=== PATIENT | female | born 1945 | race Two or more races ===

== ENCOUNTER 2017-05-13 07:19 | Day surgery (SDC) | payer OTHER ==
[~2017-05-13 07:19] MED LIST: ASPIR 8181 MG PO; COZAAR50 MG PO; GABAPENTIN800 MG PO; GLIPIZIDE10 MG PO; LANTUS SOLOSTAR3 ML SQ
== END 2017-05-13 13:15 | disposition home or self-care (01) ==
LOC: AMB-ENDOS 07:19 → CIR.AMB 12:00 → AMB-ENDOS 13:15
DX: K92.1 Melena (principal); K64.1 Second degree hemorrhoids